=== PATIENT | female | born 1985 | race African-American/Black ===

== ENCOUNTER 2017-10-20 18:59 | Emergency (ER) | payer SELFPAY ==
[~2017-10-20] VITALS: Ht 154.9 cm; Wt 65.0 kg
[2017-10-20 19:03] VITALS: BP 157/98
== END 2017-10-20 19:35 | disposition left against medical advice (07) ==
LOC: ER 19:16
DX: T43.591A Poisoning by other antipsychotics and neuroleptics, accidental (unintentional), initial encounter (principal); F43.9 Reaction to severe stress, unspecified; T50.991A Poisoning by other drugs, medicaments and biological substances, accidental (unintentional), initial encounter; Y92.89 Other specified places as the place of occurrence of the external cause
CPT/HCPCS: 99283